=== PATIENT | female | born 1990 | race African-American/Black ===

== ENCOUNTER 2017-02-10 13:08 | Emergency (ER) | payer OTHER ==
[2017-02-10 13:16] VITALS: BP 125/73; PULSE 96; TEMP 99; BMI 27.3
--- NOTE | 2017-02-10 14:06 | PDOC ---
History of Present Illness - General Chief Complaint: Eye Problem Stated Complaint: EYE IRRITATION Time Seen by Provider: 02/10/17 13:32 History Source: Patient Exam Limitations: No Limitations - History of Present Illness Initial Comments: 02/10/17 14:23 Came for evaluation of chronic left eye redness that intermittent comes and resolved spontaneously. States has some clear drainage at the time and sometimes some chemosis, sometimes it pruritic. Denies any recent trauma, denies any visual changes, denies any history of eye disease or a. Has never been evaluated for this redness but felt she was here having her son evaluated she would get it "checked out" Timing/Duration: unsure, other (intermittant for months ) Associated Symptoms: reports: denies symptoms Past History - Travel Traveled outside of the country in the last 30 days: No Close contact w/someone who was outside of country & ill: No - Past Medical History Allergies/Adverse Reactions: Allergies Allergy/AdvReac Type Severity Reaction Status Date / Time No Known Allergies Allergy Verified 02/10/17 13:15 Asthma: No Cancer: No Cardiac Disorders: No CVA: No COPD: No Diabetes: No HTN: No Seizures: No Thyroid Disease: No - Suicide/Smoking/Psychosocial Hx Smoking History: Current some day smoker Have you smoked in the past 12 months: No Number of Cigarettes Smoked Daily: 5 Information on smoking cessation initiated: No Hx Alcohol Use: Yes (SOCIAL) Drug/Substance Use Hx: No Hx Substance Use Treatment: No Review of Systems - Review of Systems Able to Perform ROS?: Yes Is the patient limited Latvian proficient: Yes Constitutional: Yes: Symptoms Reported, See HPI, Fever HEENTM: Yes: See HPI, Eye Pain, Tearing. No: Symptoms Reported, Blurred Vision , Recent change in vision Respiratory: Yes: See HPI. No: Symptoms reported Integumentary: Yes: Symptoms Reported All Other Systems: Reviewed and Negative *Physical Exam - Vital Signs Last Vital Signs Temp Pulse Resp BP Pulse Ox 99.0 F 96 H 20 125/73 100 02/10/17 13:13 02/10/17 13:13 02/10/17 13:13 02/10/17 13:13 02/10/17 13:13 - Physical Exam General Appearance: Yes: Nourished, Appropriately Dressed, Apparent Distress ( vision within normal limits) HEENT: positive: MAGNOLIA, Normal ENT Inspection, TMs Normal, Pharynx Normal Neck: positive: Supple, Lymphadenopathy (R), Lymphadenopathy (L). negative: Tender Respiratory/Chest: positive: Lungs Clear, Normal Breath Sounds Cardiovascular: positive: Regular Rate Vascular Pulses: Femoral (R): 1+, Femoral (L): 1+, Carotid (R): 1+, Carotid (L) : 1+, Dorsalis-Pedis (R): 1+, Doralis-Pedis (L): 1+ Gastrointestinal/Abdominal: positive: Normal Bowel Sounds, Soft. negative: Tender Musculoskeletal: positive: Normal Inspection Extremity: positive: Normal Capillary Refill, Normal Inspection Integumentary: positive: Normal Color, Dry, Warm, Pale Neurologic: positive: golf sales manager II-XII NML intact, Fully Oriented, Alert, Normal Mood/ Affect, Normal Response, Motor Strength 5/5 Medical Decision Making - Medical Decision Making 02/10/17 14:34 Chronic ALLERGIC conjunctivitis, will treat conservatively and have follow-up with ophthalmology *DC/Admit/Observation/Transfer Diagnosis at time of Disposition: Allergic conjunctivitis Qualifiers: Laterality: left Qualified Code(s): H10.12 - Acute atopic conjunctivitis, left eye - Discharge Dispostion Disposition: HOME Condition at time of disposition: Stable Admit: No - Referrals Referrals: Monse Martínez [Primary Care Provider] - Anton Borges MD [Non Staff, Medical] - - Patient Instructions Printed Discharge Instructions: DI for Eye Allergic Reaction Additional Instructions: Rest, avoid rubbing eyes Wash hands frequently as this is very contagious May use ALLERGIC ophthalmology drops [id number], never Visine for redness , only ALLERGY or lubricating drops Followup with ophthalmology or private physician as needed - Post Discharge Activity
== END 2017-02-10 14:25 | disposition home or self-care (01) ==
LOC: JERFT 13:08
DX: H10.12 Acute atopic conjunctivitis, left eye (principal)
CPT/HCPCS: 99281-25

== ENCOUNTER 2018-07-05 12:20 | Emergency (ER) | payer OTHER ==
[2018-07-05 12:25] VITALS: BP 131/82; PULSE 85; TEMP 97.9; BMI 25.4
--- NOTE | 2018-07-05 13:23 | PDOC ---
History of Present Illness - General Chief Complaint: Eye Problem Stated Complaint: PAIN IN BOTH EYES Time Seen by Provider: 07/05/18 13:04 History Source: Patient Exam Limitations: No Limitations - History of Present Illness Initial Comments: 07/05/18 13:17 Patient came for evaluation of painful eyes intermittently over from months. States become reddened and then tear. Denies swelling to the lids, denies drainage from either eye. Denies any recent, or history of ophthalmology disease. Patient has not used any medication has not sought attention for ophthalmology, states is supposed to be wearing glasses but chooses not to. Is not have an grain merchandising manager Past History - Travel Traveled outside of the country in the last 30 days: No Close contact w/someone who was outside of country & ill: No - Past Medical History Allergies/Adverse Reactions: Allergies Allergy/AdvReac Type Severity Reaction Status Date / Time No Known Allergies Allergy Verified 07/05/18 12:25 Home Medications: Ambulatory Orders NK [No Known Home Medication] 07/05/18 Asthma: No Cancer: No Cardiac Disorders: No CVA: No COPD: No Diabetes: No HTN: No Seizures: No Thyroid Disease: No - Suicide/Smoking/Psychosocial Hx Smoking History: Never smoked Have you smoked in the past 12 months: No Number of Cigarettes Smoked Daily: 5 Information on smoking cessation initiated: No Hx Alcohol Use: No Drug/Substance Use Hx: No Hx Substance Use Treatment: No Review of Systems - Review of Systems Able to Perform ROS?: Yes Is the patient limited Khmer proficient: Yes Constitutional: Yes: Symptoms Reported, See HPI, Malaise HEENTM: Yes: Symptoms Reported, See HPI, Eye Pain, Tearing Respiratory: Yes: Symptoms reported, See HPI *Physical Exam - Vital Signs Last Vital Signs Temp Pulse Resp BP Pulse Ox 97.9 F 85 18 131/82 99 07/05/18 12:23 07/05/18 12:23 07/05/18 12:23 07/05/18 12:23 07/05/18 12:23 - Physical Exam General Appearance: Yes: Nourished, Appropriately Dressed. No: Apparent Distress HEENT: positive: MAGNOLIA (corneas clear, no drainage, no erythema or discharge. Visual acuity is 20/50 and bilateral eyes.), Normal ENT Inspection, TMs Normal, Pharynx Normal Neck: positive: Supple. negative: Tender, Lymphadenopathy (R), Lymphadenopathy (L) Respiratory/Chest: positive: Lungs Clear, Normal Breath Sounds Extremity: positive: Normal Capillary Refill Integumentary: positive: Normal Color, Dry, Warm Neurologic: positive: locator II-XII NML intact, Fully Oriented, Alert, Normal Mood/ Affect, Normal Response, Motor Strength 5/5 *DC/Admit/Observation/Transfer Diagnosis at time of Disposition: Eye pain Qualifiers: Laterality: bilateral Qualified Code(s): H57.13 - Ocular pain, bilateral - Discharge Dispostion Disposition: HOME Condition at time of disposition: Stable Decision to Admit order: No - Referrals Referrals: Emmanuel Torres MD [Primary Care Provider] - - Patient Instructions Printed Discharge Instructions: DI for Eye Pain Additional Instructions: Rest, use glasses as directed May use eye lubricating drops, do not use Visine or "get the read out" type drops as these may cause more stinging and redness Call and make appointment to be seen by grain merchandising manager early next week for thorough eye examination and glaucoma testing Return to emergency department for fevers, drainage, worsened visual acuity or other problems. - Post Discharge Activity Forms/Work/School Notes: Back to Work
== END 2018-07-05 13:26 | disposition home or self-care (01) ==
LOC: JERFT 12:20
DX: H57.13 Ocular pain, bilateral (principal)
CPT/HCPCS: 99281-25

== ENCOUNTER 2018-10-23 10:28 | Emergency (ER) | payer OTHER ==
[2018-10-23 10:56] VITALS: BP 120/78; PULSE 100; TEMP 98.1; BMI 27.9
[2018-10-23 11:27] LABS: PH,URINE 6.5 (5.0-8.0); URINE APPEARANCE TURBID; URINE BILIRUBIN NEGATIVE (NEGATIVE); URINE COLOR YELLOW; URINE GLUCOSE (UA) NEGATIVE (NEGATIVE); URINE KETONE NEGATIVE (NEGATIVE); URINE LEUK ESTERASE 3+ (NEGATIVE); URINE NITRITE NEGATIVE (NEGATIVE); URINE PROTEIN TRACE (NEGATIVE); URINE UROBILINOGEN 0.2 mg/dL (0.2-1.0)
--- NOTE | 2018-10-23 11:44 | PDOC ---
History of Present Illness - General Chief Complaint: Pain Stated Complaint: PELVIC PAIN/URINARY PROBLEM Time Seen by Provider: 10/23/18 10:57 - History of Present Illness Initial Comments: 10/23/18 11:39 CHIEF COMPLAINT: lower abdominal pain HISTORY OF PRESENT ILLNESS: 28 yo F with no significant PMH presents to fast track with lower abdominal pain and cramping and "blood in my urine". Patient states she saw her counter supply worker Jessica Benjamin and was prescribed macrobid which did provide relief but then the symptoms returned 1 week later. Patient states her LMP was 8/24 and she has an IUD. No recent travel or sick contacts. PAST MEDICAL HISTORY: Denies past medical history FAMILY HISTORY: Denies SOCIAL HISTORY: Denies tobacco, alcohol, illicit drug use. SURGICAL HISTORY: Denies ALLERGIES: No known drug allergies REVIEW OF SYSTEMS General/Constitutional: Denies fever or chills. Denies weakness, weight change. HEENT: Denies change in vision. Denies ear pain or discharge. Denies sore throat. Cardiovascular: Denies chest pain or shortness of breath. Respiratory: Denies cough, wheezing, or hemoptysis. Gastrointestinal: Lower abdominal cramping. Denies nausea, vomiting, diarrhea or constipation. Denies rectal bleeding. Genitourinary: "Blood in my urine." Musculoskeletal: Denies joint or muscle swelling or pain. Denies neck or back pain. Skin: Denies rash or easy bruising. Neurologic: Denies headache, vertigo, loss of consciousness, or loss of sensation. PHYSICAL EXAM General Appearance: Well-appearing, appropriately dressed. No apparent distress , no intoxication. HEENT: EOMI, PERRLA, normal ENT inspection, normal voice, TMs normal, pharynx normal. No conjunctival pallor. No photophobia, scleral icterus. Neck: Supple. Trachea midline. No tenderness, rigidity, carotid bruit, stridor , lymphadenopathy, or thyromegaly. Respiratory/Chest: Lungs CTAB. No shortness of breath, chest tenderness, respiratory distress, accessory muscle use. No crackles, rales, rhonchi, stridor , wheezing, dullness Cardiovascular: RRR. S1, S2. No JVD, murmur, bradycardia, tachycardia. Vascular Pulses: Dorsalis-Pedis (R): 2+, Dorsalis-Pedis (L): 2+ Gastrointestinal/Abdominal: Mild suprapubic/lower abdominal tenderness. Normal bowel sounds. Abdomen non-distended. No organomegaly, pulsatile mass, guarding, hernia, hepatomegaly, splenomegaly. Lymphatic: No adenopathy, tenderness. Musculoskeletal/Extremities: Normal inspection. FROM of all extremities, normal capillary refill. Pelvis Stable. No CVA tenderness. No tenderness to extremities, pedal edema, swelling, erythema or deformity. Integumentary: Appropriate color, dry, warm. No cyanosis, erythema, jaundice or rash Neurologic: multiple pressure riveter operator II-XII intact. Fully oriented, alert. Appropriate mood/affect. Motor strength 5/5. No appreciable EOM palsy, facial droop or sensory deficit. Past History - Past Medical History Allergies/Adverse Reactions: Allergies Allergy/AdvReac Type Severity Reaction Status Date / Time No Known Allergies Allergy Verified 10/23/18 10:52 Home Medications: Ambulatory Orders Fluconazole [Diflucan] 150 mg PO ONCE #1 tablet 10/23/18 Nitrofurantoin Monohyd/M-Cryst [Macrobid -] 100 mg PO BID #20 capsule 10/23/18 Phenazopyridine HCl [Pyridium] 100 mg PO TID PRN #30 tablet 10/23/18 Asthma: No Cancer: No Cardiac Disorders: No CVA: No COPD: No Diabetes: No HTN: No Seizures: No Thyroid Disease: No - Suicide/Smoking/Psychosocial Hx Smoking History: Current every day smoker Have you smoked in the past 12 months: Yes Number of Cigarettes Smoked Daily: 4 Information on smoking cessation initiated: Yes Hx Alcohol Use: Yes Drug/Substance Use Hx: No Hx Substance Use Treatment: No *Physical Exam - Vital Signs Last Vital Signs Temp Pulse Resp BP Pulse Ox 98.1 F 100 H 18 120/78 100 10/23/18 10:52 10/23/18 10:52 10/23/18 10:52 10/23/18 10:52 10/23/18 10:52 ED Treatment Course - ADDITIONAL ORDERS Additional order review: Laboratory Results 10/23/18 10/23/18 11:03 11:03 Urine Color Yellow Urine Appearance Turbid Urine pH 6.5 Ur Specific [place] 1.007 L Urine Protein Trace Urine Glucose (UA) Negative Urine Ketones Negative Urine Blood 3+ H Urine Nitrite Negative Urine Bilirubin Negative Urine Urobilinogen 0.2 Ur Leukocyte Esterase 3+ H Urine HCG, Qual Negative - RADIOLOGY Radiology Studies Ordered: Category Date Time Status TRANSVAGINAL ULTRASOUND US [US] Stat Ultrasound 10/23/18 11:39 Ordered Medical Decision Making - Medical Decision Making 10/23/18 11:44 28 yo F with no significant PMH presents to fast track with lower abdominal pain and cramping and "blood in my urine". -Ua, UCx -TVUS Advised patient to take medications as prescribed and f/u with urology/equipment hire manager for persistent UTIs. Advised patient of signs and symptoms for return to ER; patient verbalized understanding and agrees to plan. *DC/Admit/Observation/Transfer Diagnosis at time of Disposition: Urinary tract infection Qualifiers: Urinary tract infection type: acute cystitis Hematuria presence: with hematuria Qualified Code(s): N30.01 - Acute cystitis with hematuria - Discharge Dispostion Disposition: HOME Condition at time of disposition: Stable Decision to Admit order: No - Prescriptions Prescriptions: Fluconazole [Diflucan] 150 mg PO ONCE #1 tablet Nitrofurantoin Monohyd/M-Cryst [Macrobid -] 100 mg PO BID #20 capsule Phenazopyridine HCl [Pyridium] 100 mg PO TID PRN #30 tablet PRN Reason: Pain - Referrals Referrals: Emmanuel Torres MD [Primary Care Provider] - Jessica Benjamin CNM [Certified Nurse Six Pack Loader Operator] - - Patient Instructions Printed Discharge Instructions: DI for Urinary Tract Infection (UTI) Additional Instructions: Please take medications as prescribed and complete the entire course of antibiotics, even if your symptoms improve. As discussed, the supplement D-mannose may help with your urinary tract infection symptoms. Follow up with your ground support equipment fitter or urologist if you have recurrent UTIs. If you develop fever, chills, back pain, vomiting, diarrhea, or any new or worsening symptoms, please return to the ER. - Post Discharge Activity Forms/Work/School Notes: Back to Work
[2018-10-23 12:14] LABS: EPI CELLS 4.7 /HPF (0-5/HPF); HYALINE CASTS 2.61 /lpf (0-8); URINE BACTERIA 149.9 /hpf (NEGATIVE); URINE RBC 8.7 /hpf (0-4); URINE WBC 860.4 /hpf (0-5)
[2018-10-23 13:11] LABS: URINE CRYSTALS CALCIUM OXALATE=FEW /hpf (NEGATIVE)
== END 2018-10-23 13:46 | disposition home or self-care (01) ==
LOC: JERFT 10:28
DX: N30.01 Acute cystitis with hematuria (principal); F17.210 Nicotine dependence, cigarettes, uncomplicated
CPT/HCPCS: 76830-TC; 81003; 84703; 87077; 87086; 87186; 99283-25

== ENCOUNTER 2021-03-23 19:09 | Emergency (ER) | payer OTHER ==
[2021-03-23 19:31] VITALS: BP 150/99; PULSE 97; TEMP 98; BMI 29.2
[2021-03-23 21:58] LABS: HCG,QUALITATIVE URINE Negative
[2021-03-23 21:59] LABS: EPI CELLS 12 /uL (0-25.1); HYALINE CASTS 0 /uL (0-3.1); URINE APPEARANCE CLEAR; URINE BACTERIA 6 /uL (0-1359); URINE BILIRUBIN NEGATIVE (NEGATIVE); URINE COLOR YELLOW; URINE GLUCOSE (UA) NEGATIVE (NEGATIVE); URINE KETONE NEGATIVE (NEGATIVE); URINE LEUK ESTERASE 1+ (NEGATIVE); URINE NITRITE NEGATIVE (NEGATIVE); URINE PROTEIN NEGATIVE (NEGATIVE); URINE RBC 3 /uL (0-23.9); URINE UROBILINOGEN 0.2 mg/dL (0.2-1.0); URINE WBC 4 /uL (0-25.8)
== END 2021-03-23 23:00 | disposition left against medical advice (07) ==
LOC: JER 19:09
DX: R10.2 Pelvic and perineal pain (principal)
CPT/HCPCS: 36415; 76830-TC; 81003; 84703; 87491; 87591; 99284-25